=== PATIENT | male | born 1955 | race Caucasian/White ===

== ENCOUNTER 2022-04-23 08:00 | Inpatient (IN) ==
[2022-04-23] MEDS ORDERED: Morphine Sulfate 2 MG/ML SYRINGE IVP ONE (08:12)
[2022-04-23] MEDS ORDERED: 0.9 % Sodium Chloride 500 ML IVC ONE (08:12)
[2022-04-23] MEDS ORDERED: Ondansetron 4 MG/2 ML VIAL IVP ONE (08:12)
[2022-04-23 08:30] LABS: Basophils % 0.2 %; Eosinophils % 0.2 %; Hematocrit 47.3 % (37.5-50.1); Hemoglobin 15.4 g/dL (12.9-16.9); Immature Granulocytes % 1.7 % (0-4); Lymphocytes # 0.5 K/mcL (0.6-4.6); Lymphocytes % 3.5 %; Mean Corpuscular HGB Conc 32.6 g/dL (31.6-35.5); Mean Corpuscular Hemoglobin 27.6 pg (28.0-33.3); Mean Corpuscular Volume 84.8 fL (83.0-100.0); Mean Platelet Volume 10.3 fL (9.4-12.4); Monocytes # 0.1 K/mcL (0.0-1.3); Monocytes % 0.7 %; Neutrophils # 12.1 K/mcL (1.6-8.9); Platelet Count 155 K/mcL (140-400); Red Blood Count 5.58 M/mcL (4.19-5.50); Red Cell Distribution Width 14.5 % (11.5-14.5); Segmented Neutrophils % 93.7 %; White Blood Count 12.9 K/mcL (4.3-11.1)
[2022-04-23 08:46] LABS: Albumin 4.1 g/dL (3.5-5.7); Albumin/Globulin Ratio 1.2 (1.1-2.2); Bilirubin,Direct 0.3 mg/dL (0.0-0.2); Bilirubin,Indirect 0.7 mg/dL (0.0-1.0); Calcium 9.1 mg/dL (8.6-10.3); Globulin 3.5 g/dL (2.4-3.5); Potassium 3.7 mEq/L (3.5-5.1); Total Protein 7.6 g/dL (6.4-8.9)
[2022-04-23] MEDS ORDERED: cefTRIAXone 2,000 MG in 0.9 % Sodium Chloride Mini Bag 100 ML IVPB ONE (08:48)
[2022-04-23] MEDS: 0.9 % Sodium Chloride 1,000 ML IVC SCH ×3 (09:03→11:33)
[2022-04-23] MEDS ORDERED: Melatonin 3 MG TABLET PO PRN (10:01)
[2022-04-23] MEDS ORDERED: Acetaminophen 325 MG TABLET PO PRN (10:01)
[2022-04-23] MEDS ORDERED: MOM Conc 10 ML UD.LIQ PO PRN (10:01)
[2022-04-23] MEDS ORDERED: Naloxone 0.4 MG/ML INJ IVP PRN (10:01)
[2022-04-23] MEDS ORDERED: Ondansetron 4 MG/2 ML VIAL IVP PRN (10:01)
[2022-04-23] MEDS ORDERED: D5% in Water 1,000 ML IVC PRN (10:03)
[2022-04-23] MEDS ORDERED: Dextrose Gel 15 GM/37.5 ML TUBE PO PRN ×2 (10:03)
[2022-04-23] MEDS ORDERED: *HR* Dextrose 50 % in Water (Syg) 50 ML SYRINGE IVP PRN (10:03)
[2022-04-23] MEDS ORDERED: Ipratropium/Albuterol Neb 3 ML IH PRN (10:10)
[2022-04-23 10:14] LABS: Bilirubin,Urine Negative (Negative); Blood,Urine Small (Negative); Clarity,Urine Clear (Clear); Color,Urine Yellow (Yellow); Glucose,Urine (UA) >=1000 mg/dL (Normal); Ketones,Urine 15 mg/dL (Negative); Leukocyte Esterase,Urine Trace (Negative); Nitrite,Urine Negative (Negative); Protein,Urine Trace mg/dL (Neg-Trace); Urobilinogen,Urine Normal (Normal)
[2022-04-23 10:24] LABS: Amorphous Sediment,Urine Few per hpf (None-Few); Mucus,Urine Few per lpf (None-Few); Squamous Epithelial Cell,Urine Few per hpf (None-Few); Transitional Epi Cells,Urine Few per hpf (None-Few)
[2022-04-23] MEDS ORDERED: Insulin LISPRO 300 UNITS/3 ML VIAL SUBQ SCH ×2 (11:30→21:00)
[2022-04-23] MEDS ORDERED: 0.9 % Sodium Chloride 1,000 ML IVC ONE (11:31)
[2022-04-23] MEDS: *HR* Heparin 5,000 UNIT/ML VIAL SQ SCH ×2 (11:34→17:42)
[2022-04-23] MEDS: *HR* OxyCODONE/APAP 10/325 TABLET PO PRN (11:42)
[2022-04-23] MEDS: Mag Hydrox/Al Hydrox/Simeth 30 ML UDC PO PRN (13:52)
[2022-04-23] MEDS ORDERED: *HR* HYDROmorphone (PF) 1 MG/ML SYRINGE IVP PRN (14:03)
[2022-04-23 16:54] LABS: Potassium 4.8 mEq/L (3.5-5.1)
[2022-04-23] MEDS: MetroNIDAZOLE 500 MG/100 ML 500 MG/100 ML BAG IVPB SCH (17:41)
[2022-04-23] MEDS ORDERED: Sodium Bicarbonate 75 MEQ in D5% in 0.45% NACL 1,000 ML IVC SCH (21:00)
[2022-04-23] MEDS ORDERED: Sodium Bicarbonate 75 MEQ in 0.45 % Sodium Chloride 1,000 ML IVC SCH (21:00)
[2022-04-24] MEDS: MetroNIDAZOLE 500 MG/100 ML 500 MG/100 ML BAG IVPB SCH ×3 (00:09→15:52)
[2022-04-24] MEDS: 0.9 % Sodium Chloride 1,000 ML IVC SCH (00:46)
[2022-04-24 03:47] LABS: CTX-M ESBL Gene Not Detected (Not Detect); IMP Carbapenem-Resist Gene Not Detected (Not Detect); NDM Carbapenem-Resist Gene Not Detected (Not Detect); OXA-48-like Carbap-Resist Gene Not Detected (Not Detect); VIM Carbapenem-Resist Gene Not Detected (Not Detect); blaKPC Carbapenem-Resist Gene Not Detected (Not Detect)
[2022-04-24 03:48] LABS: A.calcoaceticus-baumannii cplx Not Detected (Not Detect); Bacteroides fragilis by PCR Not Detected (Not Detect); Enterobacter cloacae Cmplx PCR Not Detected (Not Detect); Enterococcus faecalis by PCR Not Detected (Not Detect); Enterococcus faecium by PCR Not Detected (Not Detect); Escherichia coli by PCR Not Detected (Not Detect); Klebs. pneumoniae group by PCR Not Detected (Not Detect); Klebsiella aerogenes by PCR Not Detected (Not Detect); Klebsiella oxytoca by PCR Not Detected (Not Detect); Proteus by PCR DETECTED (Not Detect); Salmonella species by PCR Not Detected (Not Detect); Serratia marcescens by PCR Not Detected (Not Detect); Staph epidermidis by PCR Not Detected (Not Detect); Staph lugdunensis by PCR Not Detected (Not Detect); Staphylococcus aureus by PCR Not Detected (Not Detect); Staphylococcus by PCR Not Detected (Not Detect); Streptococcus agalactiae(B)PCR Not Detected (Not Detect); Streptococcus by PCR Not Detected (Not Detect); Streptococcus pneumoniae PCR Not Detected (Not Detect); Streptococcus pyogenes (A) PCR Not Detected (Not Detect)
[2022-04-24 03:49] LABS: Candida albicans by PCR Not Detected (Not Detect); Candida auris by PCR Not Detected (Not Detect); Candida glabrata by PCR Not Detected (Not Detect); Candida krusei by PCR Not Detected (Not Detect); Candida parapsilosis by PCR Not Detected (Not Detect); Candida tropicalis by PCR Not Detected (Not Detect); Crypto. neoformans/gattii PCR Not Detected (Not Detect); Pseudomonas aeruginosa by PCR Not Detected (Not Detect); Stenotrophomonas maltophilia Not Detected (Not Detect)
[2022-04-24] MEDS: *HR* Heparin 5,000 UNIT/ML VIAL SQ SCH ×2 (05:30→18:29)
[2022-04-24 07:22] LABS: Basophils % 0.3 %; Eosinophils % 0.3 %; Hematocrit 38.9 % (37.5-50.1); Hemoglobin 12.7 g/dL (12.9-16.9); Immature Granulocytes % 1.3 % (0-4); Lymphocytes % 8.2 %; Mean Corpuscular HGB Conc 32.6 g/dL (31.6-35.5); Mean Corpuscular Hemoglobin 27.8 pg (28.0-33.3); Mean Corpuscular Volume 85.1 fL (83.0-100.0); Mean Platelet Volume 10.6 fL (9.4-12.4); Monocytes # 0.9 K/mcL (0.0-1.3); Monocytes % 7.8 %; Neutrophils # 9.7 K/mcL (1.6-8.9); Platelet Count 121 K/mcL (140-400); Red Blood Count 4.57 M/mcL (4.19-5.50); Red Cell Distribution Width 14.7 % (11.5-14.5); Segmented Neutrophils % 82.1 %; White Blood Count 11.8 K/mcL (4.3-11.1)
[2022-04-24 08:07] LABS: Platelet Estimate Decreased (Normal)
[2022-04-24] MEDS: *HR* OxyCODONE/APAP 10/325 TABLET PO PRN (08:41)
[2022-04-24] MEDS: Budesonide/Formoterol 160/4.5 1 PUFF INH IH SCH ×2 (09:14→21:50)
[2022-04-24 10:31] VITALS: RESP 20
[2022-04-24] MEDS ORDERED: Sodium Bicarbonate 75 MEQ in 0.45 % Sodium Chloride 1,000 ML IVC SCH (11:30)
[2022-04-24] MEDS: Sodium Bicarbonate 75 MEQ in 0.45 % Sodium Chloride 1,000 ML IVC SCH ×2 (12:12→18:38)
[2022-04-24 13:57] LABS: Protein/Creatinine Ratio,Urine 0.97 mg/mg (0.00-0.20); Sodium, Urine 102.2 mEq/L
[2022-04-24 18:35] VITALS: TEMP 98.4; O2SAT 95
[2022-04-24 20:56] VITALS: BP 97/61; PULSE 80
[2022-04-24] MEDS: Mag Hydrox/Al Hydrox/Simeth 30 ML UDC PO PRN (20:56)
== END 2022-04-24 21:50 | disposition short-term general hospital (02) | DRG 872 ==
LOC: EMEROOPIK 08:00 → INPPIK 10:20
PROVIDERS: ADMIT Family Medicine; ATTEND Family Medicine

== ENCOUNTER 2022-05-01 16:57 | Inpatient (IN) ==
[2022-05-01] MEDS: Budesonide/Formoterol 160/4.5 1 PUFF INH IH SCH (21:01)
[2022-05-02 07:37] LABS: Basophils # 0.1 K/mcL (0.0-0.2); Basophils % 0.6 %; Eosinophils # 0.2 K/mcL (0.0-0.6); Eosinophils % 1.5 %; Hematocrit 35.7 % (37.5-50.1); Hemoglobin 11.7 g/dL (12.9-16.9); Immature Granulocytes % 3.8 % (0-4); Lymphocytes # 1.5 K/mcL (0.6-4.6); Mean Corpuscular HGB Conc 32.8 g/dL (31.6-35.5); Mean Corpuscular Hemoglobin 27.5 pg (28.0-33.3); Mean Platelet Volume 9.7 fL (9.4-12.4); Monocytes # 0.8 K/mcL (0.0-1.3); Monocytes % 6.5 %; Platelet Count 172 K/mcL (140-400); Red Blood Count 4.25 M/mcL (4.19-5.50); Red Cell Distribution Width 14.5 % (11.5-14.5); Segmented Neutrophils % 75.6 %; White Blood Count 12.5 K/mcL (4.3-11.1)
[2022-05-02 07:38] LABS: Neutrophils # 9.5 K/mcL (1.6-8.9)
[2022-05-02 07:53] LABS: Calcium 7.8 mg/dL (8.6-10.3); Potassium 4.4 mEq/L (3.5-5.1)
[2022-05-02] MEDS: *HR* Enoxaparin 40 MG/0.4 ML SYRINGE SQ SCH (07:58)
[2022-05-02] MEDS: *HR* Metformin 500 MG TABLET PO SCH ×2 (07:58→16:24)
[2022-05-02] MEDS: gemfibroziL 600 MG TABLET PO SCH ×2 (07:58→16:24)
[2022-05-02] MEDS ORDERED: CefTRIAXone 2,000 MG VIAL IVPB SCH (09:00)
[2022-05-02] MEDS: Budesonide/Formoterol 160/4.5 1 PUFF INH IH SCH ×2 (09:27→22:21)
[2022-05-02] MEDS: Aspirin Enteric Coated 81 MG Tablet PO SCH (11:21)
[2022-05-02] MEDS: allopurinoL 100 MG TABLET PO SCH (11:21)
[2022-05-02] MEDS: (Dapagliflozin Propanediol [Farxiga] 10 MG Tablet) PO SCH (11:21)
[2022-05-02] MEDS: cefTRIAXone 2,000 MG in 0.9 % Sodium Chloride 20 ML IVP SCH (16:23)
[2022-05-02] MEDS: *HR* OxyCODONE/APAP 5/325 TABLET PO PRN ×2 (16:24→23:44)
[2022-05-03] MEDS: *HR* Enoxaparin 40 MG/0.4 ML SYRINGE SQ SCH (06:16)
[2022-05-03] MEDS: gemfibroziL 600 MG TABLET PO SCH ×2 (06:17→15:31)
[2022-05-03] MEDS: Budesonide/Formoterol 160/4.5 1 PUFF INH IH SCH ×2 (08:21→22:00)
[2022-05-03] MEDS: *HR* Metformin 500 MG TABLET PO SCH ×2 (10:15→19:08)
[2022-05-03] MEDS: allopurinoL 100 MG TABLET PO SCH (10:15)
[2022-05-03] MEDS: Aspirin Enteric Coated 81 MG Tablet PO SCH (10:15)
[2022-05-03] MEDS: (Dapagliflozin Propanediol [Farxiga] 10 MG Tablet) PO SCH (10:15)
[2022-05-03] MEDS: cefTRIAXone 2,000 MG in 0.9 % Sodium Chloride 20 ML IVP SCH (15:30)
[2022-05-03] MEDS: *HR* OxyCODONE/APAP 5/325 TABLET PO PRN (15:31)
[2022-05-03 16:19] LABS: ABG Base Excess -3 mEq/L (-2 to 3); ABG HCO3 19 mEq/L (21-27); ABG Oxygen Saturation 96 % (95-98); ABG PCO2 24 mmHg (35-45); ABG PH 7.51 pH Units (7.32-7.45); ABG PO2 74 mmHg (85-104); ABG TCO2 20 mEq/L (20-26)
[2022-05-03 16:55] LABS: Albumin/Globulin Ratio 0.7 (1.1-2.2); Bilirubin,Total 0.5 mg/dL (0.3-1.0); Calcium 7.8 mg/dL (8.6-10.3); Globulin 4.2 g/dL (2.4-3.5); Potassium 4.4 mEq/L (3.5-5.1); Total Protein 7.2 g/dL (6.4-8.9)
[2022-05-03] MEDS: Dexamethasone Sodium Phos/PF 10 MG/ML VIAL IVP SCH (19:07)
[2022-05-04] MEDS: *HR* OxyCODONE/APAP 5/325 TABLET PO PRN ×2 (05:20→23:18)
[2022-05-04] MEDS: *HR* Enoxaparin 40 MG/0.4 ML SYRINGE SQ SCH (05:20)
[2022-05-04] MEDS: Aspirin Enteric Coated 81 MG Tablet PO SCH (07:50)
[2022-05-04] MEDS: gemfibroziL 600 MG TABLET PO SCH ×2 (07:50→15:24)
[2022-05-04] MEDS: Dexamethasone Sodium Phos/PF 10 MG/ML VIAL IVP SCH (07:50)
[2022-05-04] MEDS: *HR* Metformin 500 MG TABLET PO SCH ×2 (07:50→15:24)
[2022-05-04] MEDS: allopurinoL 100 MG TABLET PO SCH (07:50)
[2022-05-04] MEDS: (Dapagliflozin Propanediol [Farxiga] 10 MG Tablet) PO SCH (07:51)
[2022-05-04] MEDS: Budesonide/Formoterol 160/4.5 1 PUFF INH IH SCH ×2 (08:37→21:34)
[2022-05-04 08:47] LABS: Hematocrit 37.7 % (37.5-50.1); Hemoglobin 12.6 g/dL (12.9-16.9); Mean Corpuscular HGB Conc 33.4 g/dL (31.6-35.5); Mean Corpuscular Hemoglobin 27.4 pg (28.0-33.3); Mean Platelet Volume 10.3 fL (9.4-12.4); Platelet Count 209 K/mcL (140-400); Red Cell Distribution Width 14.3 % (11.5-14.5); White Blood Count 22.9 K/mcL (4.3-11.1)
[2022-05-04 08:58] LABS: Calcium 8.4 mg/dL (8.6-10.3); Potassium 4.5 mEq/L (3.5-5.1)
[2022-05-04] MEDS: 0.9 % Sodium Chloride 1,000 ML IVC SCH ×2 (14:07→23:20)
[2022-05-04] MEDS: cefTRIAXone 2,000 MG in 0.9 % Sodium Chloride 20 ML IVP SCH (15:24)
[2022-05-04] MEDS ORDERED: *HR* Dextrose 50 % in Water (Syg) 50 ML SYRINGE IVP PRN (16:12)
[2022-05-04] MEDS ORDERED: D5% in Water 1,000 ML IVC PRN (16:12)
[2022-05-04] MEDS ORDERED: Dextrose Gel 15 GM/37.5 ML TUBE PO PRN ×2 (16:12)
[2022-05-04] MEDS: Insulin LISPRO 300 UNITS/3 ML VIAL SUBQ SCH (17:55)
[2022-05-04] MEDS ORDERED: *HR* LORazepam 2 MG/ML VIAL IVP PRN (19:25)
[2022-05-05] MEDS: gemfibroziL 600 MG TABLET PO SCH ×2 (06:11→16:18)
[2022-05-05] MEDS: *HR* Enoxaparin 40 MG/0.4 ML SYRINGE SQ SCH (06:11)
[2022-05-05 07:57] LABS: Basophils # 0.1 K/mcL (0.0-0.2); Basophils % 0.3 %; Eosinophils % 0.1 %; Hematocrit 37.6 % (37.5-50.1); Hemoglobin 12.4 g/dL (12.9-16.9); Lymphocytes # 0.9 K/mcL (0.6-4.6); Lymphocytes % 4.7 %; Mean Corpuscular Hemoglobin 27.1 pg (28.0-33.3); Mean Corpuscular Volume 82.1 fL (83.0-100.0); Monocytes % 5.4 %; Platelet Count 197 K/mcL (140-400); Red Blood Count 4.58 M/mcL (4.19-5.50); Red Cell Distribution Width 14.5 % (11.5-14.5); Segmented Neutrophils % 87.5 %
[2022-05-05 07:58] LABS: Neutrophils # 15.8 K/mcL (1.6-8.9)
[2022-05-05] MEDS: (Dapagliflozin Propanediol [Farxiga] 10 MG Tablet) PO SCH (08:13)
[2022-05-05] MEDS: Insulin LISPRO 300 UNITS/3 ML VIAL SUBQ SCH ×3 (08:16→16:23)
[2022-05-05 08:31] LABS: Albumin 3.1 g/dL (3.5-5.7); Albumin/Globulin Ratio 0.8 (1.1-2.2); Bilirubin,Total 0.4 mg/dL (0.3-1.0); Calcium 7.7 mg/dL (8.6-10.3); Globulin 4.1 g/dL (2.4-3.5); Potassium 4.1 mEq/L (3.5-5.1); Total Protein 7.2 g/dL (6.4-8.9)
[2022-05-05] MEDS: allopurinoL 100 MG TABLET PO SCH (08:36)
[2022-05-05] MEDS: Aspirin Enteric Coated 81 MG Tablet PO SCH (08:36)
[2022-05-05] MEDS: Dexamethasone Sodium Phos/PF 10 MG/ML VIAL IVP SCH (08:36)
[2022-05-05] MEDS: 0.9 % Sodium Chloride 1,000 ML IVC SCH ×2 (08:38→16:24)
[2022-05-05] MEDS: Budesonide/Formoterol 160/4.5 1 PUFF INH IH SCH ×2 (09:00→21:18)
[2022-05-05] MEDS ORDERED: 0.9 % Sodium Chloride 250 ML IVC ONE (09:05)
[2022-05-05] MEDS: Piperacillin/Tazobactam 3.375 GM in 0.9 % Sodium Chloride Mini Bag 100 ML IVPB SCH ×3 (10:20→23:36)
[2022-05-05] MEDS: *HR* Heparin 5,000 UNIT/ML VIAL SQ SCH ×2 (16:17→20:18)
[2022-05-05] MEDS: *HR* OxyCODONE/APAP 5/325 TABLET PO PRN (23:35)
[2022-05-06] MEDS: 0.9 % Sodium Chloride 1,000 ML IVC SCH (04:19)
[2022-05-06] MEDS: *HR* Heparin 5,000 UNIT/ML VIAL SQ SCH ×3 (04:20→20:38)
[2022-05-06] MEDS: Insulin LISPRO 300 UNITS/3 ML VIAL SUBQ SCH ×3 (08:34→17:44)
[2022-05-06] MEDS: Budesonide/Formoterol 160/4.5 1 PUFF INH IH SCH ×2 (09:22→21:01)
[2022-05-06] MEDS: Aspirin Enteric Coated 81 MG Tablet PO SCH (11:38)
[2022-05-06] MEDS: allopurinoL 100 MG TABLET PO SCH (11:39)
[2022-05-06] MEDS: Piperacillin/Tazobactam 3.375 GM in 0.9 % Sodium Chloride Mini Bag 100 ML IVPB SCH ×2 (11:40→17:43)
[2022-05-06] MEDS: gemfibroziL 600 MG TABLET PO SCH ×2 (11:41→17:43)
[2022-05-06] MEDS: (Dapagliflozin Propanediol [Farxiga] 10 MG Tablet) PO SCH (11:44)
[2022-05-06] MEDS ORDERED: dexAMETHasone 4 MG TABLET PO SCH (12:45)
[2022-05-06 12:53] LABS: Basophils % 0.3 %; Eosinophils % 0.1 %; Hematocrit 36.6 % (37.5-50.1); Hemoglobin 11.7 g/dL (12.9-16.9); Lymphocytes # 0.5 K/mcL (0.6-4.6); Lymphocytes % 5.1 %; Mean Corpuscular Volume 84.3 fL (83.0-100.0); Mean Platelet Volume 10.8 fL (9.4-12.4); Monocytes # 0.5 K/mcL (0.0-1.3); Monocytes % 5.5 %; Neutrophils # 8.5 K/mcL (1.6-8.9); Platelet Count 143 K/mcL (140-400); Red Blood Count 4.34 M/mcL (4.19-5.50); Red Cell Distribution Width 14.8 % (11.5-14.5); White Blood Count 9.7 K/mcL (4.3-11.1)
[2022-05-06 13:09] LABS: Calcium 7.9 mg/dL (8.6-10.3); Potassium 4.1 mEq/L (3.5-5.1)
[2022-05-06] MEDS: Acetaminophen 325 MG TABLET PO PRN (13:14)
[2022-05-07] MEDS: Piperacillin/Tazobactam 3.375 GM in 0.9 % Sodium Chloride Mini Bag 100 ML IVPB SCH ×3 (00:12→15:51)
[2022-05-07] MEDS: *HR* Heparin 5,000 UNIT/ML VIAL SQ SCH ×3 (05:22→20:31)
[2022-05-07] MEDS: *HR* OxyCODONE/APAP 5/325 TABLET PO PRN ×2 (05:34→15:50)
[2022-05-07] MEDS: gemfibroziL 600 MG TABLET PO SCH ×2 (07:50→15:50)
[2022-05-07] MEDS: Insulin LISPRO 300 UNITS/3 ML VIAL SUBQ SCH ×3 (08:14→17:03)
[2022-05-07] MEDS: Budesonide/Formoterol 160/4.5 1 PUFF INH IH SCH ×2 (08:57→22:45)
[2022-05-07] MEDS: Aspirin Enteric Coated 81 MG Tablet PO SCH (10:21)
[2022-05-07] MEDS: (Dapagliflozin Propanediol [Farxiga] 10 MG Tablet) PO SCH (10:22)
[2022-05-07 11:16] LABS: Calcium 7.7 mg/dL (8.6-10.3); Magnesium 2.2 mg/dL (1.6-2.6); Potassium 4.5 mEq/L (3.5-5.1)
[2022-05-07 11:27] LABS: Basophils % 0.4 %; Eosinophils % 0.4 %; Hematocrit 33.4 % (37.5-50.1); Hemoglobin 10.7 g/dL (12.9-16.9); Immature Granulocytes % 1.5 % (0-4); Lymphocytes % 10.6 %; Mean Corpuscular Volume 84.1 fL (83.0-100.0); Monocytes # 0.5 K/mcL (0.0-1.3); Monocytes % 5.9 %; Neutrophils # 7.4 K/mcL (1.6-8.9); Platelet Count 140 K/mcL (140-400); Red Blood Count 3.97 M/mcL (4.19-5.50); Red Cell Distribution Width 14.7 % (11.5-14.5); Segmented Neutrophils % 81.2 %; White Blood Count 9.1 K/mcL (4.3-11.1)
[2022-05-08] MEDS: *HR* OxyCODONE/APAP 5/325 TABLET PO PRN (00:13)
[2022-05-08] MEDS: Piperacillin/Tazobactam 3.375 GM in 0.9 % Sodium Chloride Mini Bag 100 ML IVPB SCH ×4 (00:20→23:40)
[2022-05-08] MEDS: *HR* Heparin 5,000 UNIT/ML VIAL SQ SCH ×3 (05:42→21:28)
[2022-05-08] MEDS: gemfibroziL 600 MG TABLET PO SCH ×2 (08:26→15:19)
[2022-05-08] MEDS: Aspirin Enteric Coated 81 MG Tablet PO SCH (08:26)
[2022-05-08] MEDS: (Dapagliflozin Propanediol [Farxiga] 10 MG Tablet) PO SCH (08:27)
[2022-05-08] MEDS: Budesonide/Formoterol 160/4.5 1 PUFF INH IH SCH ×2 (08:38→21:43)
[2022-05-08] MEDS: Insulin LISPRO 300 UNITS/3 ML VIAL SUBQ SCH ×4 (08:40→21:03)
[2022-05-08] MEDS ORDERED: Benzonatate 100 MG CAPSULE PO PRN (08:46)
[2022-05-08 08:48] LABS: Basophils % 0.3 %; Eosinophils # 0.1 K/mcL (0.0-0.6); Eosinophils % 0.7 %; Hematocrit 33.5 % (37.5-50.1); Hemoglobin 10.9 g/dL (12.9-16.9); Immature Granulocytes % 1.1 % (0-4); Lymphocytes # 0.8 K/mcL (0.6-4.6); Lymphocytes % 5.2 %; Mean Corpuscular HGB Conc 32.5 g/dL (31.6-35.5); Mean Corpuscular Hemoglobin 27.3 pg (28.0-33.3); Mean Platelet Volume 10.8 fL (9.4-12.4); Monocytes # 1.1 K/mcL (0.0-1.3); Monocytes % 7.2 %; Platelet Count 157 K/mcL (140-400); Red Blood Count 3.99 M/mcL (4.19-5.50); Red Cell Distribution Width 14.9 % (11.5-14.5); Segmented Neutrophils % 85.5 %; White Blood Count 14.8 K/mcL (4.3-11.1)
[2022-05-08 08:50] LABS: Neutrophils # 12.7 K/mcL (1.6-8.9)
[2022-05-08 09:15] LABS: Calcium 7.7 mg/dL (8.6-10.3); Potassium 4.6 mEq/L (3.5-5.1)
[2022-05-09] MEDS: gemfibroziL 600 MG TABLET PO SCH ×2 (06:11→17:37)
[2022-05-09] MEDS: *HR* Heparin 5,000 UNIT/ML VIAL SQ SCH ×3 (06:11→20:49)
[2022-05-09 06:24] LABS: Basophils # 0.1 K/mcL (0.0-0.2); Basophils % 0.6 %; Eosinophils # 0.1 K/mcL (0.0-0.6); Eosinophils % 0.7 %; Hematocrit 33.3 % (37.5-50.1); Hemoglobin 10.6 g/dL (12.9-16.9); Immature Granulocytes % 3.7 % (0-4); Lymphocytes # 1.4 K/mcL (0.6-4.6); Lymphocytes % 12.3 %; Mean Corpuscular HGB Conc 31.8 g/dL (31.6-35.5); Mean Corpuscular Hemoglobin 26.9 pg (28.0-33.3); Mean Corpuscular Volume 84.5 fL (83.0-100.0); Mean Platelet Volume 10.6 fL (9.4-12.4); Monocytes # 0.9 K/mcL (0.0-1.3); Monocytes % 8.1 %; Neutrophils # 8.3 K/mcL (1.6-8.9); Platelet Count 177 K/mcL (140-400); Red Blood Count 3.94 M/mcL (4.19-5.50); Segmented Neutrophils % 74.6 %; White Blood Count 11.1 K/mcL (4.3-11.1)
[2022-05-09 06:32] LABS: INR 1.2; Prothrombin Time 13.8 Seconds (9.4-12.1)
[2022-05-09 06:39] LABS: Potassium 4.7 mEq/L (3.5-5.1)
[2022-05-09 06:40] LABS: Albumin 2.8 g/dL (3.5-5.7); Albumin/Globulin Ratio 0.7 (1.1-2.2); Bilirubin,Direct 0.1 mg/dL (0.0-0.2); Bilirubin,Indirect 0.3 mg/dL (0.0-1.0); Bilirubin,Total 0.4 mg/dL (0.3-1.0); Globulin 3.8 g/dL (2.4-3.5); Total Protein 6.6 g/dL (6.4-8.9)
[2022-05-09] MEDS: Aspirin Enteric Coated 81 MG Tablet PO SCH (08:31)
[2022-05-09] MEDS: allopurinoL 100 MG TABLET PO SCH (08:31)
[2022-05-09] MEDS: Insulin LISPRO 300 UNITS/3 ML VIAL SUBQ SCH ×4 (08:31→21:55)
[2022-05-09] MEDS: Piperacillin/Tazobactam 3.375 GM in 0.9 % Sodium Chloride Mini Bag 100 ML IVPB SCH ×3 (08:32→23:29)
[2022-05-09] MEDS: (Dapagliflozin Propanediol [Farxiga] 10 MG Tablet) PO SCH (08:41)
[2022-05-09] MEDS: Budesonide/Formoterol 160/4.5 1 PUFF INH IH SCH ×2 (09:05→21:31)
[2022-05-09] MEDS ORDERED: Thiamine (B-1) 100 MG, Folic Acid 1 MG, MVI, adult with vitamin K 10 ML in 0.9 % Sodi... IVPB SCH (18:00)
[2022-05-09] MEDS: Acetaminophen 325 MG TABLET PO PRN (20:50)
[2022-05-10] MEDS: *HR* Heparin 5,000 UNIT/ML VIAL SQ SCH ×3 (05:29→20:58)
[2022-05-10] MEDS: Acetaminophen 325 MG TABLET PO PRN ×2 (05:37→15:06)
[2022-05-10 07:02] LABS: Basophils # 0.1 K/mcL (0.0-0.2); Basophils % 0.9 %; Eosinophils # 0.1 K/mcL (0.0-0.6); Eosinophils % 1.3 %; Hematocrit 34.2 % (37.5-50.1); Hemoglobin 10.9 g/dL (12.9-16.9); Immature Granulocytes % 4.7 % (0-4); Lymphocytes # 1.5 K/mcL (0.6-4.6); Lymphocytes % 16.6 %; Mean Corpuscular HGB Conc 31.9 g/dL (31.6-35.5); Mean Corpuscular Volume 84.7 fL (83.0-100.0); Mean Platelet Volume 10.6 fL (9.4-12.4); Monocytes # 0.6 K/mcL (0.0-1.3); Monocytes % 6.8 %; Neutrophils # 6.1 K/mcL (1.6-8.9); Platelet Count 184 K/mcL (140-400); Red Blood Count 4.04 M/mcL (4.19-5.50); Red Cell Distribution Width 15.1 % (11.5-14.5); Segmented Neutrophils % 69.7 %; White Blood Count 8.7 K/mcL (4.3-11.1)
[2022-05-10 07:15] LABS: Calcium 8.4 mg/dL (8.6-10.3); Magnesium 1.9 mg/dL (1.6-2.6); Potassium 4.9 mEq/L (3.5-5.1)
[2022-05-10] MEDS: Insulin LISPRO 300 UNITS/3 ML VIAL SUBQ SCH ×4 (07:24→20:52)
[2022-05-10] MEDS: gemfibroziL 600 MG TABLET PO SCH ×2 (07:51→14:57)
[2022-05-10] MEDS: Aspirin Enteric Coated 81 MG Tablet PO SCH (07:51)
[2022-05-10] MEDS: allopurinoL 100 MG TABLET PO SCH (07:52)
[2022-05-10] MEDS: (Dapagliflozin Propanediol [Farxiga] 10 MG Tablet) PO SCH (07:52)
[2022-05-10] MEDS: Piperacillin/Tazobactam 3.375 GM in 0.9 % Sodium Chloride Mini Bag 100 ML IVPB SCH (07:52)
[2022-05-10] MEDS: Budesonide/Formoterol 160/4.5 1 PUFF INH IH SCH ×2 (09:31→22:37)
[2022-05-11] MEDS: *HR* Heparin 5,000 UNIT/ML VIAL SQ SCH ×3 (05:27→22:02)
[2022-05-11 07:05] LABS: Basophils # 0.1 K/mcL (0.0-0.2); Basophils % 0.9 %; Eosinophils # 0.1 K/mcL (0.0-0.6); Eosinophils % 0.9 %; Hematocrit 34.2 % (37.5-50.1); Hemoglobin 11.2 g/dL (12.9-16.9); Immature Granulocytes % 4.1 % (0-4); Lymphocytes # 1.5 K/mcL (0.6-4.6); Lymphocytes % 13.2 %; Mean Corpuscular HGB Conc 32.7 g/dL (31.6-35.5); Mean Corpuscular Hemoglobin 27.6 pg (28.0-33.3); Mean Corpuscular Volume 84.2 fL (83.0-100.0); Mean Platelet Volume 10.6 fL (9.4-12.4); Monocytes # 0.8 K/mcL (0.0-1.3); Monocytes % 7.1 %; Neutrophils # 8.1 K/mcL (1.6-8.9); Platelet Count 167 K/mcL (140-400); Red Blood Count 4.06 M/mcL (4.19-5.50); Segmented Neutrophils % 73.8 %
[2022-05-11] MEDS: Budesonide/Formoterol 160/4.5 1 PUFF INH IH SCH ×2 (07:34→21:52)
[2022-05-11] MEDS: Insulin LISPRO 300 UNITS/3 ML VIAL SUBQ SCH ×4 (08:15→20:18)
[2022-05-11] MEDS: gemfibroziL 600 MG TABLET PO SCH ×2 (08:16→16:43)
[2022-05-11] MEDS: allopurinoL 100 MG TABLET PO SCH (08:16)
[2022-05-11] MEDS: Aspirin Enteric Coated 81 MG Tablet PO SCH (08:16)
[2022-05-11] MEDS: (Dapagliflozin Propanediol [Farxiga] 10 MG Tablet) PO SCH (08:17)
[2022-05-11 08:56] LABS: Calcium 8.4 mg/dL (8.6-10.3); Potassium 4.6 mEq/L (3.5-5.1)
[2022-05-11] MEDS: Nystatin POWDER 30 GM BOTTLE TP SCH ×2 (16:43→20:18)
[2022-05-11] MEDS: Lactobacillus 1 EACH CAP.SPRINK PO SCH (20:18)
[2022-05-12] MEDS: Acetaminophen 325 MG TABLET PO PRN ×2 (00:47→17:23)
[2022-05-12] MEDS: *HR* Heparin 5,000 UNIT/ML VIAL SQ SCH ×3 (06:04→22:16)
[2022-05-12] MEDS: Insulin LISPRO 300 UNITS/3 ML VIAL SUBQ SCH ×4 (07:29→20:40)
[2022-05-12] MEDS: Aspirin Enteric Coated 81 MG Tablet PO SCH (07:30)
[2022-05-12] MEDS: (Dapagliflozin Propanediol [Farxiga] 10 MG Tablet) PO SCH (07:30)
[2022-05-12] MEDS: Lactobacillus 1 EACH CAP.SPRINK PO SCH ×2 (07:30→20:40)
[2022-05-12] MEDS: Nystatin POWDER 30 GM BOTTLE TP SCH ×3 (07:30→20:40)
[2022-05-12] MEDS: allopurinoL 100 MG TABLET PO SCH (07:30)
[2022-05-12] MEDS: gemfibroziL 600 MG TABLET PO SCH ×2 (07:30→17:23)
[2022-05-12] MEDS: Budesonide/Formoterol 160/4.5 1 PUFF INH IH SCH ×2 (08:41→19:53)
[2022-05-13] MEDS: *HR* Heparin 5,000 UNIT/ML VIAL SQ SCH ×3 (06:11→22:40)
[2022-05-13 07:10] LABS: Basophils # 0.1 K/mcL (0.0-0.2); Basophils % 1.1 %; Eosinophils # 0.2 K/mcL (0.0-0.6); Eosinophils % 1.5 %; Hematocrit 38.5 % (37.5-50.1); Hemoglobin 12.2 g/dL (12.9-16.9); Immature Granulocytes % 4.2 % (0-4); Lymphocytes # 1.8 K/mcL (0.6-4.6); Lymphocytes % 16.8 %; Mean Corpuscular HGB Conc 31.7 g/dL (31.6-35.5); Mean Corpuscular Hemoglobin 26.8 pg (28.0-33.3); Mean Corpuscular Volume 84.6 fL (83.0-100.0); Mean Platelet Volume 10.4 fL (9.4-12.4); Monocytes % 9.7 %; Platelet Count 198 K/mcL (140-400); Red Blood Count 4.55 M/mcL (4.19-5.50); Red Cell Distribution Width 15.2 % (11.5-14.5); Segmented Neutrophils % 66.7 %; White Blood Count 10.5 K/mcL (4.3-11.1)
[2022-05-13 07:34] LABS: Calcium 8.7 mg/dL (8.6-10.3); Potassium 4.9 mEq/L (3.5-5.1)
[2022-05-13] MEDS: Budesonide/Formoterol 160/4.5 1 PUFF INH IH SCH ×2 (08:21→21:53)
[2022-05-13] MEDS: Insulin LISPRO 300 UNITS/3 ML VIAL SUBQ SCH ×4 (08:22→20:58)
[2022-05-13] MEDS: Lactobacillus 1 EACH CAP.SPRINK PO SCH ×2 (09:43→20:57)
[2022-05-13] MEDS: Aspirin Enteric Coated 81 MG Tablet PO SCH (09:43)
[2022-05-13] MEDS: Nystatin POWDER 30 GM BOTTLE TP SCH ×3 (09:44→20:58)
[2022-05-13] MEDS: gemfibroziL 600 MG TABLET PO SCH ×2 (09:44→16:08)
[2022-05-13] MEDS: allopurinoL 100 MG TABLET PO SCH (09:44)
[2022-05-13] MEDS: (Dapagliflozin Propanediol [Farxiga] 10 MG Tablet) PO SCH (09:48)
[2022-05-13] MEDS: valACYclovir 500 MG TABLET PO SCH ×2 (16:09→20:58)
[2022-05-14] MEDS: *HR* Heparin 5,000 UNIT/ML VIAL SQ SCH ×3 (06:59→22:11)
[2022-05-14] MEDS: Insulin LISPRO 300 UNITS/3 ML VIAL SUBQ SCH ×4 (08:28→20:47)
[2022-05-14] MEDS: Aspirin Enteric Coated 81 MG Tablet PO SCH (09:05)
[2022-05-14] MEDS: Lactobacillus 1 EACH CAP.SPRINK PO SCH ×2 (09:05→20:46)
[2022-05-14] MEDS: valACYclovir 500 MG TABLET PO SCH ×3 (09:05→20:45)
[2022-05-14] MEDS: gemfibroziL 600 MG TABLET PO SCH ×2 (09:06→17:36)
[2022-05-14] MEDS: allopurinoL 100 MG TABLET PO SCH (09:06)
[2022-05-14] MEDS: Nystatin POWDER 30 GM BOTTLE TP SCH ×3 (09:07→20:46)
[2022-05-14] MEDS: (Dapagliflozin Propanediol [Farxiga] 10 MG Tablet) PO SCH (09:07)
[2022-05-14] MEDS: Budesonide/Formoterol 160/4.5 1 PUFF INH IH SCH ×2 (10:03→21:35)
[2022-05-15] MEDS: *HR* Heparin 5,000 UNIT/ML VIAL SQ SCH ×3 (06:04→19:52)
[2022-05-15] MEDS: Budesonide/Formoterol 160/4.5 1 PUFF INH IH SCH ×2 (08:21→21:07)
[2022-05-15] MEDS: Insulin LISPRO 300 UNITS/3 ML VIAL SUBQ SCH ×4 (10:37→19:51)
[2022-05-15] MEDS: gemfibroziL 600 MG TABLET PO SCH ×2 (10:38→16:58)
[2022-05-15] MEDS: Aspirin Enteric Coated 81 MG Tablet PO SCH (10:38)
[2022-05-15] MEDS: valACYclovir 500 MG TABLET PO SCH ×3 (10:38→19:51)
[2022-05-15] MEDS: Lactobacillus 1 EACH CAP.SPRINK PO SCH ×2 (10:38→19:50)
[2022-05-15] MEDS: allopurinoL 100 MG TABLET PO SCH (10:38)
[2022-05-15] MEDS: (Dapagliflozin Propanediol [Farxiga] 10 MG Tablet) PO SCH (10:39)
[2022-05-15] MEDS: Nystatin POWDER 30 GM BOTTLE TP SCH ×3 (10:40→19:51)
[2022-05-16] MEDS: *HR* Heparin 5,000 UNIT/ML VIAL SQ SCH ×3 (06:08→20:13)
[2022-05-16] MEDS: Budesonide/Formoterol 160/4.5 1 PUFF INH IH SCH ×2 (07:19→20:53)
[2022-05-16] MEDS: Insulin LISPRO 300 UNITS/3 ML VIAL SUBQ SCH ×4 (07:35→20:19)
[2022-05-16] MEDS: gemfibroziL 600 MG TABLET PO SCH ×2 (08:34→15:46)
[2022-05-16] MEDS: valACYclovir 500 MG TABLET PO SCH ×3 (08:34→20:10)
[2022-05-16] MEDS: Aspirin Enteric Coated 81 MG Tablet PO SCH (08:34)
[2022-05-16] MEDS: Lactobacillus 1 EACH CAP.SPRINK PO SCH ×2 (08:34→20:10)
[2022-05-16] MEDS: Nystatin POWDER 30 GM BOTTLE TP SCH ×3 (08:34→20:19)
[2022-05-16] MEDS: allopurinoL 100 MG TABLET PO SCH (08:34)
[2022-05-16] MEDS: (Dapagliflozin Propanediol [Farxiga] 10 MG Tablet) PO SCH (08:35)
[2022-05-17] MEDS: *HR* Heparin 5,000 UNIT/ML VIAL SQ SCH ×3 (05:45→22:11)
[2022-05-17] MEDS: valACYclovir 500 MG TABLET PO SCH ×3 (08:10→20:28)
[2022-05-17] MEDS: Aspirin Enteric Coated 81 MG Tablet PO SCH (08:10)
[2022-05-17] MEDS: Insulin LISPRO 300 UNITS/3 ML VIAL SUBQ SCH ×2 (08:11→13:05)
[2022-05-17] MEDS: gemfibroziL 600 MG TABLET PO SCH ×2 (08:11→16:13)
[2022-05-17] MEDS: allopurinoL 100 MG TABLET PO SCH (08:11)
[2022-05-17] MEDS: Lactobacillus 1 EACH CAP.SPRINK PO SCH ×2 (08:11→20:28)
[2022-05-17] MEDS: Nystatin POWDER 30 GM BOTTLE TP SCH ×3 (08:14→20:30)
[2022-05-17] MEDS: Budesonide/Formoterol 160/4.5 1 PUFF INH IH SCH ×2 (09:12→21:52)
[2022-05-17] MEDS: (Dapagliflozin Propanediol [Farxiga] 10 MG Tablet) PO SCH (11:59)
[2022-05-17] MEDS ORDERED: GuaiFENesin/Codeine Oral Soln 5 ML UDC PO PRN (13:06)
[2022-05-18] MEDS: *HR* Heparin 5,000 UNIT/ML VIAL SQ SCH ×3 (06:18→19:57)
[2022-05-18] MEDS: Budesonide/Formoterol 160/4.5 1 PUFF INH IH SCH ×2 (08:47→22:07)
[2022-05-18] MEDS: gemfibroziL 600 MG TABLET PO SCH ×2 (10:10→14:38)
[2022-05-18] MEDS: Aspirin Enteric Coated 81 MG Tablet PO SCH (10:10)
[2022-05-18] MEDS: allopurinoL 100 MG TABLET PO SCH (10:11)
[2022-05-18] MEDS: valACYclovir 500 MG TABLET PO SCH ×3 (10:11→19:57)
[2022-05-18] MEDS: Lactobacillus 1 EACH CAP.SPRINK PO SCH ×2 (10:11→19:57)
[2022-05-18] MEDS: Nystatin POWDER 30 GM BOTTLE TP SCH ×3 (10:22→20:04)
[2022-05-18] MEDS: (Dapagliflozin Propanediol [Farxiga] 10 MG Tablet) PO SCH (10:23)
[2022-05-19] MEDS: *HR* Heparin 5,000 UNIT/ML VIAL SQ SCH ×3 (05:45→20:03)
[2022-05-19] MEDS: allopurinoL 100 MG TABLET PO SCH (07:58)
[2022-05-19] MEDS: Lactobacillus 1 EACH CAP.SPRINK PO SCH ×2 (07:58→20:03)
[2022-05-19] MEDS: Nystatin POWDER 30 GM BOTTLE TP SCH ×3 (07:58→20:07)
[2022-05-19] MEDS: (Dapagliflozin Propanediol [Farxiga] 10 MG Tablet) PO SCH (07:59)
[2022-05-19] MEDS: Aspirin Enteric Coated 81 MG Tablet PO SCH (07:59)
[2022-05-19] MEDS: valACYclovir 500 MG TABLET PO SCH ×3 (07:59→20:03)
[2022-05-19] MEDS: gemfibroziL 600 MG TABLET PO SCH ×2 (07:59→15:30)
[2022-05-19] MEDS: Budesonide/Formoterol 160/4.5 1 PUFF INH IH SCH ×2 (09:12→22:07)
[2022-05-20] MEDS: *HR* Heparin 5,000 UNIT/ML VIAL SQ SCH ×3 (06:06→20:42)
[2022-05-20 07:09] LABS: Hematocrit 38.5 % (37.5-50.1); Hemoglobin 12.3 g/dL (12.9-16.9); Mean Corpuscular HGB Conc 31.9 g/dL (31.6-35.5); Mean Corpuscular Hemoglobin 27.3 pg (28.0-33.3); Mean Corpuscular Volume 85.6 fL (83.0-100.0); Mean Platelet Volume 10.2 fL (9.4-12.4); Platelet Count 207 K/mcL (140-400); Red Cell Distribution Width 15.4 % (11.5-14.5); White Blood Count 7.4 K/mcL (4.3-11.1)
[2022-05-20 07:26] LABS: BUN/Creatinine Ratio 21 (6-26); Blood Urea Nitrogen 26 mg/dL (8-23); Calcium 9.1 mg/dL (8.6-10.3); Carbon Dioxide 23 mEq/L (23-29); Chloride 100 mEq/L (98-107); Glucose 118 mg/dL (70-105); Osmolality,Calculated 284 (280-300); Potassium 4.1 mEq/L (3.5-5.1); Sodium 134 mEq/L (136-145); eGFR For African Americans > 60 (> 60); eGFR For Non-African Americans 57 (> 60)
[2022-05-20] MEDS: valACYclovir 500 MG TABLET PO SCH (09:40)
[2022-05-20] MEDS: gemfibroziL 600 MG TABLET PO SCH ×2 (09:40→17:06)
[2022-05-20] MEDS: Lactobacillus 1 EACH CAP.SPRINK PO SCH ×2 (09:40→20:42)
[2022-05-20] MEDS: Aspirin Enteric Coated 81 MG Tablet PO SCH (09:40)
[2022-05-20] MEDS: allopurinoL 100 MG TABLET PO SCH (09:40)
[2022-05-20] MEDS: Nystatin POWDER 30 GM BOTTLE TP SCH ×3 (09:41→20:46)
[2022-05-20] MEDS: (Dapagliflozin Propanediol [Farxiga] 10 MG Tablet) PO SCH (09:45)
[2022-05-20] MEDS: Budesonide/Formoterol 160/4.5 1 PUFF INH IH SCH ×2 (10:04→21:48)
[2022-05-21] MEDS: *HR* Heparin 5,000 UNIT/ML VIAL SQ SCH ×3 (06:05→21:56)
[2022-05-21] MEDS: Budesonide/Formoterol 160/4.5 1 PUFF INH IH SCH ×2 (09:22→21:43)
[2022-05-21] MEDS: Lactobacillus 1 EACH CAP.SPRINK PO SCH ×2 (10:14→21:56)
[2022-05-21] MEDS: gemfibroziL 600 MG TABLET PO SCH ×2 (10:14→17:58)
[2022-05-21] MEDS: Aspirin Enteric Coated 81 MG Tablet PO SCH (10:14)
[2022-05-21] MEDS: allopurinoL 100 MG TABLET PO SCH (10:15)
[2022-05-21] MEDS: (Dapagliflozin Propanediol [Farxiga] 10 MG Tablet) PO SCH (10:17)
[2022-05-21] MEDS: Nystatin POWDER 30 GM BOTTLE TP SCH ×3 (10:19→21:57)
[2022-05-22] MEDS: *HR* Heparin 5,000 UNIT/ML VIAL SQ SCH ×3 (06:38→23:21)
[2022-05-22] MEDS: Budesonide/Formoterol 160/4.5 1 PUFF INH IH SCH ×2 (07:37→21:43)
[2022-05-22] MEDS: allopurinoL 100 MG TABLET PO SCH (07:49)
[2022-05-22] MEDS: gemfibroziL 600 MG TABLET PO SCH ×2 (07:49→15:18)
[2022-05-22] MEDS: Lactobacillus 1 EACH CAP.SPRINK PO SCH ×2 (07:49→20:39)
[2022-05-22] MEDS: Nystatin POWDER 30 GM BOTTLE TP SCH ×3 (07:57→20:39)
[2022-05-22] MEDS: (Dapagliflozin Propanediol [Farxiga] 10 MG Tablet) PO SCH (07:57)
[2022-05-22] MEDS: Aspirin Enteric Coated 81 MG Tablet PO SCH (07:57)
[2022-05-23] MEDS: *HR* Heparin 5,000 UNIT/ML VIAL SQ SCH ×3 (07:10→21:26)
[2022-05-23] MEDS: gemfibroziL 600 MG TABLET PO SCH ×2 (07:11→16:50)
[2022-05-23] MEDS: Lactobacillus 1 EACH CAP.SPRINK PO SCH ×2 (08:38→19:53)
[2022-05-23] MEDS: Aspirin Enteric Coated 81 MG Tablet PO SCH (08:38)
[2022-05-23] MEDS: Nystatin POWDER 30 GM BOTTLE TP SCH ×3 (08:38→19:54)
[2022-05-23] MEDS: (Dapagliflozin Propanediol [Farxiga] 10 MG Tablet) PO SCH (08:38)
[2022-05-23] MEDS: allopurinoL 100 MG TABLET PO SCH (08:38)
[2022-05-23] MEDS: Budesonide/Formoterol 160/4.5 1 PUFF INH IH SCH ×2 (09:23→21:20)
[2022-05-24] MEDS: *HR* Heparin 5,000 UNIT/ML VIAL SQ SCH (05:25)
[2022-05-24 06:58] VITALS: BP 109/73; PULSE 80; RESP 18; TEMP 97.9
[2022-05-24] MEDS: (Dapagliflozin Propanediol [Farxiga] 10 MG Tablet) PO SCH (08:08)
[2022-05-24] MEDS: allopurinoL 100 MG TABLET PO SCH (08:08)
[2022-05-24] MEDS: Lactobacillus 1 EACH CAP.SPRINK PO SCH (08:08)
[2022-05-24] MEDS: Aspirin Enteric Coated 81 MG Tablet PO SCH (08:08)
[2022-05-24] MEDS: Nystatin POWDER 30 GM BOTTLE TP SCH (08:08)
[2022-05-24] MEDS: gemfibroziL 600 MG TABLET PO SCH (08:09)
[2022-05-24] MEDS: Budesonide/Formoterol 160/4.5 1 PUFF INH IH SCH (08:50)
[2022-05-24 08:52] VITALS: O2SAT 96
== END 2022-05-24 10:50 | disposition home or self-care (01) | DRG 682 ==
LOC: INPPIK 18:55
PROVIDERS: ADMIT Family Medicine; ATTEND Family Medicine